=== PATIENT | female | born 1950 | race Caucasian/White ===

== ENCOUNTER 2024-01-11 10:09 | Emergency (ER) | payer MEDICARE, SELFPAY ==
--- NOTE | ~2024-01-11 | CT_ITS ---
EXAMINATION: CT abd pelvis lumbar wo con DATE: 01/11/2024 10:39 INDICATION: Left flank pain and nausea for 2 days TECHNIQUE: Computed tomography (CT) of the abdomen and pelvis was performed without intravenous contr ast. Automated exposure control and iterative reconstruction technique were employed. Exam dose: 269 .17 mGy-cm total exam DLP. COMPARISON: None. FINDINGS: Cardiomegaly. Status post sternotomy, with retained epicardial pacemaker wires. Aortic valv e calcification and/or replacement; recommend correlation with surgical history. No pericardial or pleural effusion. The lung bases are clear of consolidation. Moderately large hiatal hernia. Status post cholecystectomy. Mild pneumobilia. No hepatic, splenic, pancreatic, and adrenal or solid renal space-occupying mass lesion is evident on this limited noncontrast examination. Parapelvic left renal cyst or cysts. No urinary tract calculus or hydroureteronephrosis. The urinary bladder is unre markable. Uterus and adnexal areas are likewise unremarkable. Fusiform infrarenal up to 4.7 cm abdominal aortic aneurysm. Extensive calcification of the iliac and femoral arteries. Ectasia of the right common iliac artery. There are innumerable diverticula of the sigmoid and to a lesser extent descending colon; no CT evide nce of diverticulitis. No bowel obstruction, bowel wall thickening, pneumatosis or intraperitoneal fr ee air is detected. Upper central fat-containing abdominal wall hernia. Tiny umbilical hernia. Prominent loss of height/burst fracture deformity of T10. Osteopenia. IMPRESSION: 4.7 cm infrarenal abdominal aortic aneurysm Cardiomegaly Status post sternotomy Aortic valve calcification and/or replacement Moderately large hiatal hernia Status post cholecystectomy/mild pneumobilia Parapelvic left renal cyst(s) Diverticulosis of the left colon; no CT evidence of diverticulitis Probable chronic burst fracture deformity of T10 Reviewed, dictated and finalized at [facility] Reviewed, dictated and finalized at [facility] [employer]
[2024-01-11 10:10] VITALS: BP 115/59; PULSE 65; RESP 18; TEMP 36.6; O2SAT 97
[2024-01-11] MEDS: KETOROLAC 30 MG/ML VIAL (*BKC) IM (10:44)
[2024-01-11 11:50] VITALS: BP 126/61; PULSE 81; RESP 16; TEMP 37.2; O2SAT 97
[2024-01-11 12:44] LABS: Appearance Urine Clear (Clear); Bilirubin Urine 1+ (Negative); Blood Urine Negative (Negative); Color Urine Yellow (Yellow); Glucose Urine UA Negative (Negative); Ketones Urine Trace (Negative); Leukocyte Esterase Ur 1+ LEU/UL (Negative); Nitrate Urine Negative (Negative); Protein Urine Negative (Negative); Specific Grav Ur >= 1.030 (1.010-1.020)
[2024-01-11 12:49] LABS: Add Urine Microscopic? YES; Bacteria Urine 1+ /hpf; RBC Urine None seen /hpf (0-2); Squamous Epithelial Cell Urine Few /hpf (Few); WBC Urine 31-50 /hpf (0-3)
--- NOTE | 2024-01-11 12:54 | ED.BACK ---
HPI - Back Pain/Injury General Chief Complaint: Back Pain/Injury Stated Complaint: back pain Time Seen by Provider: 01/11/24 10:20 Source: patient and family Mode of arrival: ambulatory Limitations: no limitations History of Present Illness HPI Narrative: This is a 74-year-old female presents with back pain right-sided with no radiation of her pain no sciatic pain no numbness or tingling no paresthesias in the saddle area no fever chills there is some mild hesitancy with no dysuria or hematuria no fever chills no nausea vomiting no abdominal pain. Patient did see her primary that order her a muscle relaxer that she did not picker yet. MD elicited complaint: back pain Onset (ago): day(s) Timing: constant Severity: moderate Pain scale (0-10): 6 Quality: dull and aching Location: lumbar spine and right flank Radiation: none Related Data Allergies Allergy/AdvReac Type Severity Reaction Status Date / Time acetaminophen [From Percocet] Allergy Rash Verified 01/11/24 10:14 oxycodone [From Percocet] Allergy Rash Verified 01/11/24 10:14 Review of Systems Review of Systems: All systems reviewed & are unremarkable except as noted in HPI and below PMFSH Past Medical History Medical History HTN (hypertension) Exam Const: General: healthy appearing and no acute distress Nutritional Appearance: well nourished and obese Orientation/consciousness: patient oriented x3 Limitations: no limitations Neck: Neck: normal visual inspection, no lymphadenopathy and no meningeal signs Chest: Chest palpation & inspection: normal inspection of the chest Resp: Effort & Inspection: normal respiratory effort Auscultation: clear to auscultation bilaterally Cardio: Rate: regular rate Rhythm: regular rhythm GI: GI Palp: Yes Soft to palpation : General: Yes bladder normal to palpation Back/Spine/Pelvis: Back: CVA tenderness Skin: General skin exam: normal color Neuro: General: patient oriented x3, moves all extremities and no meningeal signs Extrem: Other: right CVA tenderness with palpation with a negative straight leg raising test. Course Course Emergency Course: Patient had a CT scan which showed no renal stones no acute abdomen, did show patient had a 4.7 diameter cm infrarenal AAA abdominal aortic aneurysm which is known to the patient and advised patient to have this monitored with primary. 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 UA performed shows that she has a urinary tract infection will be sending antibiotics to patient's local pharmacy. Patient did get some moderate relief after reassessment with 30mg IM Toradol. Vital Signs Vital signs: Vital Signs Temperature 36.6 C 01/11/24 10:10 Pulse Rate 65 01/11/24 10:10 Respiratory Rate 18 01/11/24 10:10 Blood Pressure 115/59 L 01/11/24 10:10 Pulse Oximetry 97 01/11/24 10:10 Oxygen Delivery Room Air 01/11/24 10:10 Temperature 37.2 C 01/11/24 11:50 Pulse Rate 81 01/11/24 11:50 Respiratory Rate 16 01/11/24 11:50 Blood Pressure 126/61 01/11/24 11:50 Pulse Oximetry 97 01/11/24 11:50 Oxygen Delivery Room Air 01/11/24 11:50 MDM - Back Pain/Injury Lab Data Labs: Lab Results 01/11/24 Range/Units 12:30 Urine Color Yellow (Yellow) Urine Appearance Clear (Clear) Urine pH 6.0 (5.0-8.0) Ur Specific [place] >= 1.030 H (1.010-1.020) Urine Protein Negative (Negative) Urine Glucose (UA) Negative (Negative) Urine Ketones Trace H (Negative) Ur Blood (Man) Negative (Negative) Urine Nitrate Negative (Negative) Urine Bilirubin 1+ H (Negative) Urine Urobilinogen 4.0 H (0.2-1.0) mg/dL Leukocyte Esterase Rfl 1+ H (Negative) SHMUEL/UL Urine RBC None seen (0-2) /hpf Urine WBC 31-50 H (0-3) /hpf Ur Squamous Epith Cells Few (Few) /hpf Urine Bacteria 1+
[2024-01-11 13:04] VITALS: BP 148/87; PULSE 64; RESP 20; TEMP 37.1; O2SAT 97
--- NOTE | 2024-01-15 07:26 | PC.NURSE ---
final urine culture report reviewed. mixed genital anne-marie isolated. not indicative of uti. no change in plan of care.
== END 2024-01-11 13:04 | disposition home or self-care (01) ==
PROVIDERS: Emergency Provider Emergency Medicine
DX: M54.50 Low back pain, unspecified (principal); N39.0 Urinary tract infection, site not specified; I10 Essential (primary) hypertension
CPT/HCPCS: 72131; 74176; 81001; 87086; 96372; 99284; J1885